=== PATIENT | female | born 1965 | race African-American/Black ===

== ENCOUNTER → 2016-10-28 | Outpatient (CLI) | payer MEDICARE, OTHER ==
[~2016-10-28] MED LIST: ALBUTEROL17 GM INH; ANEXSIA 7.5/3251 TA1 PO; BENZONATATE PO; BUPROPION HCL150 M1 PO; BUSPAR PO; BUSPAR15 M1 PO; BUSPAR15 M3 PO; DESYREL100 MG PO; EC-NAPROSYN500 MG PO; FLEXERIL10 MG PO; GABAPENTIN800 MG PO; HYDROCHLOROTHIA25 MG PO; HYDROXYZINE HCL25 M1 PO; MAXZIDE 37.5 M1 EACH PO; METOPROLOL SUCC25 MG PO; MUCINEX DM ER1 EACH PO; PANTOPRAZOLE SO40 MG PO; PROZAC PO; TEMAZEPAM30 MG PO; TRIAMTERENE-HCT1 TA8 PO; WELLBUTRIN XL150 M1 PO; ZYRTEC10 M2 PO
--- NOTE | ~2016-10-28 | CT57 ---
[facility] A Service of [facility] & [facility] RADIOLOGY TEXT RESULTS PATIENT: CARMEL MEEHAN LOCATION: [facility] : 61 UNIT #: [id number] AGE: [address]: Kanchan Navarrete SEX: F ORDER DR: [id number] [facility] [address] [place], [place] [address] [id number] O MR#: [id number] [facility] #: [id number] NAME: CARMEL MEEHAN : 1965 SEX: F STUDY DATE/TIME: 10/28/2016 08:53 UNIT: US ROOM: STUDY DESCRIPTION: CT Chest Wo Cont Attending Physician: Kanchan Navarrete A.P.R.N. Referring Physician: Kanchan Navarrete A.P.R.N. Ordering Physician: Kanchan Navarrete A.P.R.N. Primary Care Physician: [facility] MEDICAL IMAGING REPORT This report is preliminary unless electronic signature is present EXAM CT chest without contrast high resolution 10/28/2016 0853 hours CLINICAL HISTORY 50-year-old woman with shortness of air and acid reflux symptoms for 5 years. Patient notes that she hyperventilates when lying flat. History of cough with allergies, hay fever intermittently for several years since 2003. COMPARISON None. TECHNIQUE Helical routine chest CT images were obtained from the thoracic inlet through the adrenal glands without contrast. Patient then underwent high-resolution protocol with 1.5 mm thick images at 10 mm intervals at full inspiration in the supine position. Additional 1 mm expiratory phase images were obtained at the arch, chele, and bases. Patient was then turned to the prone position for similar high-resolution images through the lung bases only. No contrast was administered. Total exam DLP 93 mGy-cm. This CT exam was performed with one or more of the following radiation dose reduction techniques: automatic exposure control, adjustment of mA and/or kV according to patient size, and iterative reconstruction. FINDINGS Routine images through the chest demonstrate no thyroid lesion or supraclavicular adenopathy. Images through the chest demonstrate normal caliber aorta and pulmonary arteries. Cardiac chambers and esophagus are normal. There is no pathologic adenopathy. There is no pericardial or pleural fluid. [facility]. [facility] A Service of [facility] & [facility] RADIOLOGY TEXT RESULTS PATIENT: CARMEL MEEHAN LOCATION: [place] [facility] #: [id number] : 61 UNIT #: [id number] AGE: [address]: Kanchan Navarrete SEX: F ORDER DR: Routine lung window images demonstrate linear density in the right middle lobe likely atelectasis or scar. There is no mass or nodule. The high-resolution portion of the exam demonstrates mild underlying centrilobular emphysema. There is no evidence of diffuse interstitial lung disease. No significant air trapping. Prone images demonstrate no definite basilar fibrosis. Limited views through the upper abdomen demonstrate no liver or splenic lesion. There is a low-density left adrenal nodule measuring 1.5 cm and only 5 cm diagnostic of a benign adenoma requiring no additional further evaluation. IMPRESSION 1. There is mild underlying emphysematous change with no evidence of underlying interstitial lung disease, pneumonia, or adenopathy. 2. Aorta and cardiac chambers appear normal in size. 3. There is a benign 1.5 cm left adrenal adenoma. Dictated by... Constanza Moura M.D. THIS IS AN ELECTRONICALLY VERIFIED REPORT Constanza Moura M.D. at 10/29/2016 9:25 AM Vicente TD: 10/28/2016 15:53 JOB #: [id number] MEDICAL IMAGING REPORT COPY
--- NOTE | ~2016-10-28 | US98 ---
[facility] A Service of [facility] & [facility] RADIOLOGY TEXT RESULTS PATIENT: CARMEL MEEHAN LOCATION: [facility] : 61 UNIT #: [id number] AGE: [address]: Kanchan Navarrete SEX: F ORDER DR: [id number] [facility] [address] [place], [place] [address] [id number] O MR#: [id number] Acc #: [id number] NAME: CARMEL MEEHAN : 1965 SEX: F STUDY DATE/TIME: 10/28/2016 8:10 UNIT: [facility] ROOM: STUDY DESCRIPTION: US Pelvic Non-OB Complete Attending Physician: Kanchan Navarrete A.P.R.N. Referring Physician: Kanchan Navarrete A.P.R.N. Ordering Physician: Kanchan Navarrete A.P.R.N. Primary Care Physician: [facility] MEDICAL IMAGING REPORT This report is preliminary unless electronic signature is present EXAM Transabdominal and transvaginal pelvic ultrasound. DATE 10/28/2016 at 08:10 HISTORY Followup bilateral ovarian cysts seen on prior MRI. Patient denies pain. COMPARISON MRI of the lumbar spine performed at high [facility] and open MRI 09/11/2016. No previous pelvic ultrasound of this institution for comparison. FINDINGS Transabdominal imaging was performed for generalized visualization of pelvic structures while transvaginal imaging was performed for more detailed evaluation of the adnexa. The uterus measures 3.4 cm x 2.4 cm x 8.5 cm. The myometrium appears very heterogeneous with areas of acoustic shadowing, but no well-defined myometrial lesion can be identified in this examination. Myomatous uterus cannot be excluded. The endometrial bilayer is largely obscured by the heterogeneous myometrium. On the transabdominal portion of the examination the endometrial bilayer is thought to measures 7 mm which is within normal limits. Neither the right nor the left ovary can be satisfactorily visualized either on transabdominal or transvaginal imaging. No definite pelvic free fluid is seen. IMPRESSION 1. Extensive heterogeneity with acoustic shadowing throughout the uterine myometrium. While no discrete nodules or lesions can be STS. [facility] A Service of [facility] & [facility] RADIOLOGY TEXT RESULTS PATIENT: CARMEL MEEHAN LOCATION: [facility] : 61 UNIT #: [id number] AGE: [address]: Kanchan Navarrete SEX: F ORDER DR: accurately measured, the features would suggest a leiomyomatous uterus. 2. The endometrial bilayer, to the extent that can be visualized, appears within normal limits. 3. Neither the right nor the left ovary can be satisfactorily visualized on today's examination, either on transabdominal or transvaginal imaging. Dictated by... Oma Patel M.D. THIS IS AN ELECTRONICALLY VERIFIED REPORT Oma Patel M.D. at 10/29/2016 2:08 PM DAMON/huber TD: 10/29/2016 03:20 JOB #: [id number] MEDICAL IMAGING REPORT COPY
== END | disposition home or self-care (01) ==
LOC: CGUS 07:15
DX: R06.02 Shortness of breath (principal); R05 Cough; R53.83 Other fatigue; N83.292 Other ovarian cyst, left side; N83.202 Unspecified ovarian cyst, left side; R93.8 Abnormal findings on diagnostic imaging of other specified body structures; D35.02 Benign neoplasm of left adrenal gland
CPT/HCPCS: 71250; 76830; 76856

== ENCOUNTER → 2017-02-18 | Outpatient (CLI) | payer MEDICARE, OTHER ==
--- NOTE | ~2017-02-18 | CR150 ---
[facility] A Service of [facility] & [facility] RADIOLOGY TEXT RESULTS PATIENT: CARMEL MEEHAN LOCATION: [facility] : 61 UNIT #: [id number] AGE: [address]: Elizabeth Jon APRN SEX: F ORDER DR: [id number] [facility] [address] [place], [place] [address] [id number] O MR#: [id number] Acc #: [id number] NAME: CARMEL MEEHAN : 1965 SEX: F STUDY DATE/TIME: 02/18/2017 13:39 UNIT: [facility] ROOM: STUDY DESCRIPTION: CR Hip Min 2 Views Lt Attending Physician: Elizabeth Jon Aprn Referring Physician: Elizabeth Jon Aprn Ordering Physician: Elizabeth Jon Aprn Primary Care Physician: [facility] MEDICAL IMAGING REPORT This report is preliminary unless electronic signature is present EXAM Left hip 2 views 02/18/2017 HISTORY Left hip pain and low back pain for 1 year. No known injury. FINDINGS AP and oblique examination of the hip shows adequate mineralization of the bones and a normal anatomic relationship of the femoral head with the acetabulum. There are no hypertrophic changes, fractures, dislocation, or joint capsular distension. No radiopaque foreign body is present about the soft tissues of the hip. IMPRESSION Normal hip. Dictated by... Marcelo Fontenot M.D. THIS IS AN ELECTRONICALLY VERIFIED REPORT Marcelo Fontenot M.D. at 02/19/2017 5:04 PM RUFINO/filipe TD: 02/19/2017 11:18 JOB #: [id number] MEDICAL IMAGING REPORT Page 1 of 1 COPY
== END | disposition home or self-care (01) ==
LOC: CRAD 12:36
DX: M25.552 Pain in left hip (principal); M54.5 Low back pain
CPT/HCPCS: 73502